=== PATIENT | male | born 1980 | race Caucasian/White ===

== ENCOUNTER 2019-11-21 07:16 | Emergency (ER) | payer OTHER ==
[2019-11-21 07:42] VITALS: BMI 30.1
[2019-11-21] MEDS ORDERED: SODIUM CHLORIDE 500 ML IV STA (08:18)
[2019-11-21] MEDS ORDERED: ACETAMINOPHEN 1000 MG/100 ML VIAL (NON FORMULARY) IVPB ONE (08:20)
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
[2019-11-21 08:49] LABS: INR 1.01 (0.83-1.09); PROTHROMBIN TIME (PATIENT) 11.9 SEC (9.7-13.0)
[2019-11-21 08:52] LABS: BASO % 0.2 % (0-2.0); EOS % 0.1 % (0-4.5); HEMATOCRIT 46.9 % (35.4-49); LYMPH % 5.1 % (8-40); MCH 29.6 pg (25.7-33.7); MEAN CELL VOLUME 86.8 fl (80-96); MEAN PLT VOLUME 7.6 fl (7.5-11.1); MONO % 5.4 % (3.8-10.2); NEUT % 89.2 % (42.8-82.8); PLATELET COUNT 261 K/MM3 (134-434); RDW 13.3 % (11.9-15.9); WHITE BLOOD COUNT 13.3 K/mm3 (4.0-10.0)
[2019-11-21 10:16] LABS: ALK PHOS 75 U/L (45-117); ANION GAP 8 MMOL/L (8-16); BILIRUBIN,TOTAL 0.3 mg/dL (0.2-1); BLOOD UREA NITROGEN 7.2 mg/dL (7-18); CALCIUM 8.9 mg/dL (8.5-10.1); CHLORIDE 103 mmol/L (98-107); CO2 26 mmol/L (21-32); CREATININE 0.8 mg/dL (0.55-1.3); GLUCOSE,RANDOM 119 mg/dL (74-106); SGOT/AST 42 U/L (15-37); SGPT/ALT 40 U/L (13-61); SODIUM 137 mmol/L (136-145); TOT PROT 8.1 g/dl (6.4-8.2)
[2019-11-21] MEDS ORDERED: traMADol HCL 50 MG TABLET PO ONE (10:45)
[2019-11-21] MEDS ORDERED: traMADol HCL 50 MG TABLET ONE (10:51)
[2019-11-21 13:11] VITALS: BP 129/80; PULSE 96; TEMP 98
== END 2019-11-21 13:09 | disposition home or self-care (01) ==
LOC: EDBD 07:16 → JER 07:16
PROC: 3E033NZ Introduction of Analgesics, Hypnotics, Sedatives into Peripheral Vein, Percutaneous Approach (ICD-10-PCS; principal; 2019-11-21)
PROC: 3E0337Z Introduction of Electrolytic and Water Balance Substance into Peripheral Vein, Percutaneous Approach (ICD-10-PCS; 2019-11-21)
DX: S22.32XA Fracture of one rib, left side, initial encounter for closed fracture (principal); S09.90XA Unspecified injury of head, initial encounter; S22.008A Other fracture of unspecified thoracic vertebra, initial encounter for closed fracture; V03.90XA Pedestrian on foot injured in collision with car, pick-up truck or van, unspecified whether traffic or nontraffic accident, initial encounter; Y93.89 Activity, other specified; Y92.410 Unspecified street and highway as the place of occurrence of the external cause; F17.210 Nicotine dependence, cigarettes, uncomplicated
CPT/HCPCS: 36415; 70450-TC; 71046-TC-FY; 72125-TC; 73070-TC-LT-FY; 73523-TC-FY; 73552-TC-LT-FY; 74177-TC; 80053; 80307; 85025; 85610; 86850; 86900; 86901; 99285-25; J0131; Q9967